=== PATIENT | female | born 1985 | race American Indian/Alaskan Native ===

== ENCOUNTER 2021-03-15 19:10 | Emergency (ER) | payer OTHER ==
[~2021-03-15] VITALS: Ht 160 cm; Wt 117.9 kg
--- NOTE | 2021-03-15 20:02 | NUR ---
Wilmar hebert in [place] - 03/15/21 at 2010 by FRANCHESCA BLOOD COLLECTED AND SENT TO LAB
--- NOTE | 2021-03-15 20:11 | NUR ---
BIBS C/O "SINUS PAIN" PATIENT COMPLAINING OF HAVING A HEADACHE BODY ACHES CHILLS AND FEELING FATIGUE X1DAY. PATIENT TOOK TYLENOL @ 8AM. PATIENT ALERT AND ORIENTED X3 AMBULATORY WITH NON LABORED BREATHING.
[2021-03-15] MEDS ORDERED: AMOX-430 PO (20:51)
[2021-03-15 21:00] VITALS: BP 135/70
--- NOTE | 2021-03-15 21:00 | NUR ---
Patient discharged to home in stable condition. Written and verbal after care instructions given. Patient verbalizes understanding of instruction.
== END 2021-03-15 21:01 | disposition home or self-care (01) ==
LOC: ER 19:13
DX: J32.1 Chronic frontal sinusitis (principal); J32.0 Chronic maxillary sinusitis; Z20.822 Contact with and (suspected) exposure to COVID-19; Z88.8 Allergy status to other drugs, medicaments and biological substances; Z88.1 Allergy status to other antibiotic agents
CPT/HCPCS: 87426; 99283; C9803

== ENCOUNTER 2022-02-05 21:38 | Emergency (ER) | payer OTHER ==
[~2022-02-05] VITALS: Ht 160 cm; Wt 117.9 kg
[~2022-02-05 21:38] MED LIST: AMOX-430 PO
--- NOTE | 2022-02-05 23:01 | NUR ---
BIBSELF C/O DIMITRI FLANK PAIN X 5 DAYS . PT A/OX4. TOLERATING R/A WELL WITH NO RESP DISTRESS. RR EVEN AND NONLABORES. SAFETY MEASURES IN PLACE.
--- NOTE | 2022-02-05 23:03 | NUR ---
URINE COLLECTED AND SENT TO LAB
[2022-02-05] MEDS ORDERED: KETOROLAC TROMETHAMINE INJ 30 MG/ML VIAL ONE (23:15)
[2022-02-05] MEDS ORDERED: KETOROLAC TROMETHAMINE INJ 30 MG/ML VIAL IM ONE (23:30)
--- NOTE | 2022-02-05 23:57 | NUR ---
CALLED LAB TO F/U WITH URINE RESULTS. NOT YET RECIEVED
[2022-02-06] MEDS ORDERED: HYDROCODONE/APAP 10/325MG TABLET ONE (00:05)
[2022-02-06 00:23] LABS: BILIRUBIN,URINE NEGATIVE (NEGATIVE); COLOR,URINE YELLOW (YELLOW); LEUKOCYTE ESTERASE ,URINE TRACE (NEGATIVE); NITRITE, URINE NEGATIVE (NEGATIVE); PROTEIN,URINE NEGATIVE (NEGATIVE); UGLUCOSE NEGATIVE (NEGATIVE); UROBILINOGEN,URINE 0.2 EU/dL (0.2)
[2022-02-06] MEDS ORDERED: HYDROCODONE/APAP 10/325MG TABLET PO ONE (00:30)
[2022-02-06 00:48] LABS: CALCIUM OXALATE CRYSTALS,UR Moderate /HPF (None Seen); SQUAMOUS EPITHELIAL CELL,UR Moderate /HPF (None Seen)
[2022-02-06 00:50] LABS: BACTERIA,URINE Few /HPF (None Seen)
[2022-02-06] MEDS ORDERED: IBUP-1957 PO (01:28)
[2022-02-06] MEDS ORDERED: TAMS-12 PO (01:28)
[2022-02-06] MEDS ORDERED: HYDR-3976 PO (01:28)
[2022-02-06] MEDS ORDERED: FLUC150T PO (01:44)
[2022-02-06] MEDS ORDERED: METR500T PO (01:44)
--- NOTE | 2022-02-06 01:45 | NUR ---
[place] [place] COLLECTED AND SENT TO LAB
--- NOTE | 2022-02-06 02:10 | NUR ---
Patient discharged to home in stable condition. RX Written and verbal after care instructions given. Patient verbalizes understanding of instruction. Patient discharged to home in stable condition. Written and verbal after care instructions given. Patient verbalizes understanding of instruction.
[2022-02-06 02:12] VITALS: BP 139/81
== END 2022-02-06 02:13 | disposition home or self-care (01) ==
LOC: ER 21:41
DX: N20.0 Calculus of kidney (principal); Z88.8 Allergy status to other drugs, medicaments and biological substances; Z79.899 Other long term (current) drug therapy
CPT/HCPCS: 81001; 84703-TC; 87086-TC; 87210-TC; J1885

== ENCOUNTER 2022-07-18 20:22 | Emergency (ER) | payer OTHER ==
[~2022-07-18] VITALS: Ht 160 cm; Wt 115.7 kg
[~2022-07-18 20:22] MED LIST changes: +FLUC150T PO; +HYDR-3976 PO; +IBUP-1957 PO; +METR500T PO; +TAMS-12 PO
--- NOTE | 2022-07-18 20:38 | NUR ---
BIBS C/O SORE THROAT, SWOLLEN LYMPH NODES, HEADACHE , & ACHING. PT AAOX4, IN NAD, SITTING COMFORTABLY IN BED. VITALS CHECKED.
--- NOTE | 2022-07-18 21:25 | NUR ---
Patient does not wish to proceed with medical care recommended by Keisha KUNZ NP. Patient given information related to possible complications, up to and including , which could occur as a result of leaving the hospital at this time. Patient verbalizes understanding of risks involved due to leaving against medical advice. Patient has signed AMA form.
[2022-07-18 22:11] VITALS: BP 149/69
== END 2022-07-18 21:25 | disposition left against medical advice (07) ==
LOC: ER 20:25
DX: J02.9 Acute pharyngitis, unspecified (principal); R51.9 Headache, unspecified; M79.10 Myalgia, unspecified site; Z88.8 Allergy status to other drugs, medicaments and biological substances; Z60.2 Problems related to living alone; Z79.899 Other long term (current) drug therapy; Z20.822 Contact with and (suspected) exposure to COVID-19
CPT/HCPCS: 99283; 87426; C9803

== ENCOUNTER 2022-07-23 20:14 | Emergency (ER) | payer OTHER ==
[~2022-07-23] VITALS: Ht 160 cm; Wt 117.9 kg
[2022-07-23 20:47] VITALS: BP 115/79
--- NOTE | 2022-07-23 20:47 | NUR ---
BIBSELF FROM HOME C/O RUNNY NOSE, CONGESTION, & EARACHE X1 WEEK. HX SINUS INFECTION
[2022-07-23] MEDS ORDERED: FLUT16SP16 BNOSTRILS (21:03)
[2022-07-23] MEDS ORDERED: PSEU120T83 PO (21:03)
--- NOTE | 2022-07-23 21:09 | NUR ---
Patient discharged to home in stable condition. Written and verbal after care instructions given. Patient verbalizes understanding of instruction.
== END 2022-07-23 21:09 | disposition home or self-care (01) ==
LOC: ER 20:17
DX: J32.9 Chronic sinusitis, unspecified (principal); Z90.49 Acquired absence of other specified parts of digestive tract; Z88.8 Allergy status to other drugs, medicaments and biological substances; Z60.2 Problems related to living alone; Z79.899 Other long term (current) drug therapy

== ENCOUNTER 2022-10-02 00:34 | Emergency (ER) | payer OTHER ==
[~2022-10-02] VITALS: Ht 160 cm; Wt 117.9 kg
[~2022-10-02 00:34] MED LIST changes: +FLUT16SP16 BNOSTRILS; +PSEU120T83 PO
[2022-10-02 01:45] LABS: APPEARANCE,URINE SLIGHTLY CLOUDY (CLEAR); BILIRUBIN,URINE NEGATIVE (NEGATIVE); BLOOD, URINE 1+ Ery/uL (NEGATIVE); COLOR,URINE YELLOW (YELLOW); KETONES,URINE NEGATIVE (NEGATIVE); LEUKOCYTE ESTERASE ,URINE 2+ (NEGATIVE); NITRITE, URINE POSITIVE (NEGATIVE); PROTEIN,URINE TRACE mg/dl (NEGATIVE); UGLUCOSE NEGATIVE (NEGATIVE); UROBILINOGEN,URINE 0.2 EU/dL (0.2)
[2022-10-02 01:48] LABS: ADD URINE CULTURE YES; BACTERIA,URINE 4+ /HPF (None Seen); MUCUS,URINE Moderate /LPF (None Seen)
[2022-10-02] MEDS ORDERED: NITR100C PO (02:06)
[2022-10-02] MEDS ORDERED: NITROFURANTOIN/MONOHYDRATE MACROCRYSTALS 100 MG CAPSULE ONE (02:12)
[2022-10-02 02:17] VITALS: BP 169/98; TEMP 98.1; O2SAT 98
[2022-10-02] MEDS ORDERED: NITROFURANTOIN/MONOHYDRATE MACROCRYSTALS 100 MG CAPSULE PO ONE (02:30)
[2022-10-02] MEDS ORDERED: CEPH500T PO ×2 (19:56→20:29)
== END 2022-10-02 02:17 | disposition home or self-care (01) ==
LOC: ER 00:48
DX: N39.0 Urinary tract infection, site not specified (principal); Z79.899 Other long term (current) drug therapy; Z90.49 Acquired absence of other specified parts of digestive tract; Z60.2 Problems related to living alone; Z91.040 Latex allergy status; Z88.1 Allergy status to other antibiotic agents
CPT/HCPCS: 81001; 87086-TC

== ENCOUNTER 2022-10-02 17:33 | Emergency (ER) | payer OTHER ==
[~2022-10-02] VITALS: Ht 160 cm; Wt 117.9 kg
[~2022-10-02 17:33] MED LIST changes: +NITR100C PO
[2022-10-02 18:20] VITALS: BP 133/92; TEMP 98.2
[2022-10-02] MEDS ORDERED: CEPH500T PO ×2 (19:56→20:29)
[2022-10-02 20:00] VITALS: O2SAT 98
== END 2022-10-02 22:59 | disposition home or self-care (01) ==
LOC: ER 17:37
DX: R42 Dizziness and giddiness (principal); R11.2 Nausea with vomiting, unspecified; T37.8X5A Adverse effect of other specified systemic anti-infectives and antiparasitics, initial encounter; Z90.49 Acquired absence of other specified parts of digestive tract; Z91.040 Latex allergy status; Z88.1 Allergy status to other antibiotic agents; Z60.2 Problems related to living alone; Z79.899 Other long term (current) drug therapy; Y92.89 Other specified places as the place of occurrence of the external cause

== ENCOUNTER 2023-03-12 17:14 | Emergency (ER) | payer MEDICAID, OTHER ==
[~2023-03-12] VITALS: Ht 162.6 cm; Wt 117.9 kg
[~2023-03-12 17:14] MED LIST changes: +CEPH500T PO
[2023-03-12] MEDS ORDERED: AMOX-430 PO (18:25)
[2023-03-12] MEDS ORDERED: FLUC200T PO (18:25)
[2023-03-12 18:34] LABS: APPEARANCE,URINE SLIGHTLY CLOUDY (CLEAR); BILIRUBIN,URINE NEGATIVE (NEGATIVE); BLOOD, URINE NEGATIVE Ery/uL (NEGATIVE); COLOR,URINE YELLOW (YELLOW); KETONES,URINE NEGATIVE (NEGATIVE); LEUKOCYTE ESTERASE ,URINE TRACE (NEGATIVE); NITRITE, URINE NEGATIVE (NEGATIVE); PH,URINE 7.5 (5.0-8.0); PROTEIN,URINE NEGATIVE (NEGATIVE); UGLUCOSE NEGATIVE (NEGATIVE); UROBILINOGEN,URINE 0.2 EU/dL (0.2)
[2023-03-12 18:53] VITALS: BP 149/85; TEMP 98.1; O2SAT 98
[2023-03-12 19:49] LABS: ADD URINE CULTURE NO; BACTERIA,URINE None seen /HPF (None Seen); WBC,URINE 0-2 /HPF (0-3)
[2023-03-12 19:50] LABS: TRICHOMONAS,URINE None Seen /HPF (None Seen); YEAST,URINE None Seen /HPF (None Seen)
== END 2023-03-12 18:53 | disposition home or self-care (01) ==
LOC: ER 17:22
DX: N76.0 Acute vaginitis (principal); Z87.440 Personal history of urinary (tract) infections; Z90.49 Acquired absence of other specified parts of digestive tract; Z88.8 Allergy status to other drugs, medicaments and biological substances; Z60.2 Problems related to living alone
CPT/HCPCS: 81001